=== PATIENT | female | born 2000 | race Caucasian/White ===

== ENCOUNTER 2022-03-27 20:12 | Emergency (ER) | payer OTHER ==
[~2022-03-27] VITALS: Ht 167.6 cm; Wt 53.1 kg
[2022-03-27] MEDS ORDERED: FOLIC ACID0.8 M1 PO (20:33)
== END 2022-03-28 00:19 | disposition home or self-care (01) ==
LOC: ER 20:12
DX: O20.9 Hemorrhage in early pregnancy, unspecified (principal); Z3A.01 Less than 8 weeks gestation of pregnancy

== ENCOUNTER 2022-09-30 19:01 | Inpatient (IN) | payer OTHER ==
[~2022-09-30] VITALS: Ht 167.6 cm; Wt 69.4 kg
[~2022-09-30 19:01] MED LIST: FOLIC ACID0.8 M1 PO
[2022-09-30] MEDS ORDERED: PRENATABS RX T1 EACH PO (19:44)
== END 2022-10-05 16:42 | disposition home or self-care (01) | DRG 786 ==
LOC: OB/GYN 19:01 → LDR 19:01 → OB/GYN 10-01 11:07 → O/R 10-05 14:37 → OB/GYN 10-05 14:40
PROVIDERS: ADMIT Obstetrics & Gynecology; ATTEND Obstetrics & Gynecology
PROC: 4A1HXCZ Monitoring of Products of Conception, Cardiac Rate, External Approach (ICD-10-PCS; 2022-09-30)
PROC: BY4FZZZ Ultrasonography of Third Trimester, Single Fetus (ICD-10-PCS; 2022-09-30)
PROC: BY4FZZZ Ultrasonography of Third Trimester, Single Fetus (ICD-10-PCS; 2022-10-03)
PROC: 10D00Z1 Extraction of Products of Conception, Low, Open Approach (ICD-10-PCS; principal; 2022-10-03 13:45)
DX: O36.8330 Maternal care for abnormalities of the fetal heart rate or rhythm, third trimester, not applicable or unspecified (principal); O60.14X0 Preterm labor third trimester with preterm delivery third trimester, not applicable or unspecified; Z3A.35 35 weeks gestation of pregnancy; Z37.0 Single live birth; Z20.822 Contact with and (suspected) exposure to COVID-19